=== PATIENT | male | born 1970 | race Caucasian/White ===

== ENCOUNTER 2024-03-25 10:22 | Outpatient (CLI) | payer OTHER, SELFPAY ==
--- NOTE | 2024-03-25 10:27 | CT_ITS ---
WS: [id number] CT chest w con* [id number] HISTORY: LUNG NODULE TECHNIQUE: Axial imaging performed through the thorax. Coronal and sagittal reformats are submitted. All CT scans at [facility] use at least one of these dose optimization techniques: automated exposure control; mA and/or kV adjustment per patient size (includes targeted exams where dose is matched to clinical indication); or iterative reconstruction. CONTRAST: Omnipaque 350; 100 mL IV. DLP: 301.42 mGy.cm COMPARISON: 02/19/2024, 10/31/2014 Lungs and central airway: Reidentified is a well-circumscribed pulmonary nodule in the periphery, superior segment LEFT lower lobe measuring 5 x 6 x 4 mm. This nodule was described on the prior exam of 02/19/2024 without increase in size. Nodule was not present on the study from 2014. Lungs are slightly hyperexpanded. Mild dependent changes at the lung bases. Focal linear scar at the lung bases. Additional curvilinear atelectasis or scar in the RIGHT middle lobe. Pleura: Normal. No pleural effusion. Heart and pericardium: Normal size heart with no pericardial effusion. Mediastinum and juan: Indeterminate bilateral hilar lymph nodes. The largest on the LEFT is 1.3 cm. Lymph nodes have increased in size since 2014. Vessels: Mild atherosclerosis aorta. No aneurysm. Normal size pulmonary artery. Chest wall and lower neck: No soft tissue masses. Upper abdomen: No adrenal mass. Visualized liver is negative. Gallbladder is contracted. Small hiatal hernia. Osseous structures: Sclerotic focus LEFT lateral fourth rib. Stable. CT/CT chest w con* [id number] IMPRESSION: 1. No significant increase in size of the well-circumscribed 5 x 6 x 4 mm nodu le superior segment LEFT lower lobe. New since 2014 and stable since 02/19/2024. This nodule may be too small to be evaluated by PET/CT imaging. Recommend 3-mo nth chest CT follow-up. 2. Indeterminate bilateral hilar lymph nodes. The largest lymph node is 1.3 cm on the LEFT. This can also be reevaluated in [address] with IV contrast for better evaluation of the hilar lymph nodes. 3. Emphysema.
[2024-03-25] MEDS: iohexol 350 mg/mL 500 mL Btl (per mL) IV (10:46)
== END 2024-03-25 10:23 | disposition home or self-care (01) ==
PROVIDERS: Family Provider Internal Medicine; Visit Provider Family Medicine
DX: R91.1 Solitary pulmonary nodule (principal); R59.0 Localized enlarged lymph nodes; J43.9 Emphysema, unspecified; R91.8 Other nonspecific abnormal finding of lung field; I70.0 Atherosclerosis of aorta; K44.9 Diaphragmatic hernia without obstruction or gangrene; R93.89 Abnormal findings on diagnostic imaging of other specified body structures
CPT/HCPCS: 71260

== ENCOUNTER 2024-06-18 07:26 | Outpatient (CLI) | payer OTHER, SELFPAY ==
--- NOTE | 2024-06-18 07:31 | CT_ITS ---
WS: [id number] CT chest w con* [id number] HISTORY: LUNG NODULE TECHNIQUE: Axial imaging performed through the thorax. Coronal and sagittal reformats are submitted. All CT scans at [facility] use at least one of these dose optimization techniques: automated exposure control; mA and/or kV adjustment per patient size (includes targeted exams where dose is matched to clinical indication); or iterative reconstruction. CONTRAST: Omnipaque 350; 100 mL IV. DLP: 304.58 mGy.cm COMPARISON: 03/25/2024 Lungs and central airway: Mild pulmonary hyperexpansion. Reidentified is a subpleural nodule superior segment LEFT lower lobe measuring 6 x 8 mm. Slight increase in size since the prior exam. No additional suspicious nodules. No pneumonia. Pleura: Normal. No pleural effusion. Heart and pericardium: Normal size heart with no pericardial effusion. Mediastinum and juan: Small bilateral hilar lymph nodes. The largest is 10 mm on the RIGHT. Vessels: Mild atherosclerosis aorta. Normal size pulmonary artery. Chest wall and lower neck: There is a soft tissue mass in the high anterior mediastinum measuring 1.6 cm transversely and extending over a length of 2.1 cm. There is partial enhancement of this well-circumscribed mass which abuts the anterior trachea. Upper abdomen: Small hiatal hernia. Mild hepatic steatosis. Osseous structures: There are few scattered endplate sclerotic changes in the thoracic and lumbar spines. These sclerotic changes have been present since 2015. CT/CT chest w con* [id number] IMPRESSION: 1. Very slight increase in size LEFT lower lobe pulmonary nodule now measuring 6 x 8 mm. 2. High anterior mediastinal enhancing mass measures 1.6 x 2.1 cm. Differentia l includes lymph node or thyroid nodule. 3. Recommend PET/CT imaging to reevaluate the anterior mediastinal mass and al so the LEFT lower lobe pulmonary nodule. 4. Small hilar lymph nodes.
[2024-06-18] MEDS: iohexol 350 mg/mL 500 mL Btl (per mL) IV (08:00)
== END 2024-06-18 07:27 | disposition home or self-care (01) ==
LOC: RAD 07:29
PROVIDERS: Family Provider Internal Medicine; PCP Family Medicine; Visit Provider Family Medicine
DX: R91.1 Solitary pulmonary nodule (principal); R93.89 Abnormal findings on diagnostic imaging of other specified body structures; R59.0 Localized enlarged lymph nodes; R91.8 Other nonspecific abnormal finding of lung field; I70.0 Atherosclerosis of aorta; K44.9 Diaphragmatic hernia without obstruction or gangrene; K76.0 Fatty (change of) liver, not elsewhere classified; R93.7 Abnormal findings on diagnostic imaging of other parts of musculoskeletal system
CPT/HCPCS: 71260

== ENCOUNTER 2024-07-18 13:49 | Outpatient (CLI) | payer OTHER, SELFPAY ==
--- NOTE | 2024-07-18 14:00 | PETR_ITS ---
PROCEDURE INFORMATION: Exam: PET/CT Skull Base to Mid-thigh Exam date and time: 07/18/2024 3:10 PM Age: 54 years old Clinical indication: Abnormal findings; Chest CT; Additional info: Mediastinal mass LABS AND CLINICAL REPORTS: Glucose: 127 mg/dl Treatment strategy for malignancy (PET staging): Initial Staging (PI) TECHNIQUE: Imaging protocol: Following at least four-hour fasting and following the injection of radiopharmaceutical, low dose CT images were obtained. Then, PET images were obtained. Attenuation corrected images were constructed using the CT scan. Fused images of PET and CT were reviewed. The standardized uptake values (SUV) reported below are maximum values within a region of interest, expressed in gm/ml. Exam includes orbital meatal line to mid-thigh. SUV normalization method: BodyWeight Radiopharmaceutical: 11.96 mCi F-18 FDG (Fluorodeoxyglucose), IV. Time of imaging post radiopharmaceutical administration: 53 minutes Injection site: LAC COMPARISON: CT chest w con* [id number] 06/18/2024 7:53 AM FINDINGS: Brain: Visualized brain has normal physiologic uptake. Pharynx: Uptake in the bilateral palatine tonsils is likely physiologic or inflammatory, SUV max 8.8 on the right and SUV max 9.2 on the left. Larynx: No abnormal uptake. Thyroid: No abnormal uptake. Lungs, pleura and trachea: A solid 0.8 x 0.6 cm nodule in the lateral left lower lobe on CT image 105 is noted, SUV max 1.7. Heart: Normal physiologic uptake. Mediastinal space: A mediastinal solid nodule adjacent to the inferior aspect of the thyroid gland and anterior to the trachea measuring 2.1 x 1.4 cm on series 202, image 71 demonstrates an SUV max 1.9. Esophagus: Mild, likely physiologic or inflammatory uptake in the mid to distal esophagus is noted, SUV max 4.2 on image 117, without wall thickening or definite mass. Liver: No abnormal uptake. Gallbladder and biliary ducts: No abnormal uptake. Pancreas: No abnormal uptake. Spleen: No abnormal uptake. Adrenal glands: No abnormal uptake. Kidneys and ureters: Normal physiologic uptake. Stomach and bowel: No abnormal uptake. Vasculature: No abnormal uptake. Multifocal regions of atherosclerotic calcification are present. Lymph nodes: Uptake within non pathologically enlarged mediastinal and bilateral hilar lymph nodes is noted, SUV max 4.8 within a 1 cm lymph node in the right hilar region on PET image 92; SUV max 4.1 in the left hilar region on PET image 98; SUV max 3.9 in the precarinal space in the lymph node measuring 7 mm in short axis on image 84 and SUV max 4.8 in the subcarinal space on image 97 measuring 0.9 cm in short axis. Skeleton: Degenerative changes are noted throughout the spine. Non radiotracer avid regions of curvilinear sclerotic density in the left femoral head are noted, for example on CT image 244. Uptake in the region of the right hip joint capsule is likely inflammatory, SUV max 8.3 on image 202. Soft tissues: No abnormal uptake in the visualized head, neck, chest, abdomen, pelvis, and extremities. METRICS: Mediastinal blood pool: SUV max 2.1, SUV mean 1.7 PET/PET skull to thigh INIT [id number] IMPRESSION: 1. A previously identified anterior superior mediastinal mass immediately adjacent to the inferior margin of the thyroid gland is noted, with uptake less than mediastinal blood pool activity, which favors a benign etiology. As this structure was similar density compared to the thyroid gland on the prior CT, ectopic thyroid tissue is a consideration. A malignant etiology is less likely. Consider nuclear medicine thyroid scan for further evaluation. 2. Elevated uptake is noted within non pathologically enlarged bilateral hilar and mediastinal lymph nodes, which can be inflammatory, infectious or malignant in etiology. 3. A similar in size solid left lower lobe nodule for history mild uptake, less than mediastinal blood pool activity. While low-level uptake favors a benign etiology, assessment of small nodules can be limited by PET-CT, and malignancy is not entirely excluded. 4. Additional nonurgent findings as detailed above.
== END 2024-07-18 13:50 | disposition home or self-care (01) ==
PROVIDERS: Family Provider Internal Medicine; PCP Family Medicine; Visit Provider Family Medicine
DX: E07.9 Disorder of thyroid, unspecified (principal); J98.59 Other diseases of mediastinum, not elsewhere classified; R59.0 Localized enlarged lymph nodes; M89.8X5 Other specified disorders of bone, thigh; R93.3 Abnormal findings on diagnostic imaging of other parts of digestive tract
CPT/HCPCS: 78815; A9552

== ENCOUNTER 2024-09-04 08:56 | Outpatient (CLI) | payer OTHER, SELFPAY ==
--- NOTE | 2024-09-04 09:19 | NM_ITS ---
WS: [id number] NUCLEAR MEDICINE 24 HOUR I-123 THYROID UPTAKE INDICATION: LEFT thyroid nodule TECHNIQUE: I-123 24 HOUR THYROID UPTAKE WITH PLANAR IMAGING. 146.2 UCI DEAN 123 COMPARISON: PET CT 07/18/2024 and prior chest CTs FINDINGS: Normal homogeneous thyroid uptake bilaterally. Slightly increased 24-hour thyroid uptake 40.36%. Previously described nodular tissue at the inferior margin of the thyroid gland on the prior PET/CT does not demonstrate visible radiotracer uptake on this study. Note this appears to have been present on the prior CT in 2014 and measures slightly larger and more prominent on the recent studies. Lesion characteristics are again nonspecific and this remains indeterminate. Primary differential considerations include thymoma, prominent lymph node, and possibly parathyroid adenoma. Recommend correlation with calcium levels. (NORMAL REFERENCE RANGE 24H THRYOID UPTAKE 8-35%) NM/NM thyroid uptake multi [id number] IMPRESSION: 1. Normal homogeneous thyroid uptake bilaterally. 2. Slightly increased 24-hour thyroid uptake 40.36%. Recommend correlation wit h thyroid function studies and consider endocrinology evaluation 3. See discussion above of the anterior superior mediastinal nodule just below the inferior margin of the thyroid gland. Nodule did not accumulate radiotrace r on this study. 4. Findings remain nonspecific but primary differential considerations include thymoma, prominent lymph node, or possibly parathyroid adenoma. Recommend cont inued surveillance or surgical consultation for resection.
== END 2024-09-04 08:57 | disposition home or self-care (01) ==
LOC: RAD 08:57
PROVIDERS: PCP Family Medicine; Visit Provider Family Medicine
DX: Q89.2 Congenital malformations of other endocrine glands (principal)
CPT/HCPCS: 78014; A9516